=== PATIENT | female | born 1990 | race Hispanic/Latino ===

== ENCOUNTER 2022-07-12 09:22 | Emergency (ER) | payer SELFPAY ==
[~2022-07-12] VITALS: Ht 154.9 cm; Wt 79.4 kg
[2022-07-12] MEDS ORDERED: SODIUM CHLORIDE 0.9% 1000ML 1,000 ML IV STA (09:26)
[2022-07-12] MEDS ORDERED: ONDANSETRON HCL INJ 2MG/ML 2ML 2 MG/ML VIAL IV PRN (09:30)
[2022-07-12 09:42] LABS: BASOPHILS # (AUTO) 0.1 (0.0-0.1); BASOPHILS % 0.8 % (0.0-1.0); EOSINOPHILS # (AUTO) 0.2 (0.0-0.4); EOSINOPHILS % 2.1 % (0.0-6.0); HEMATOCRIT 33.2 % (34.2-44.1); HEMOGLOBIN 9.2 g/dL (12.0-16.0); LYMPHOCYTES # (AUTO) 2.9 (1.0-3.2); LYMPHOCYTES % 33.4 % (18.0-39.1); MEAN CORPUSCULAR HEMOGLOBIN 18.6 pg (28-32); MEAN CORPUSCULAR HGB CONC 27.7 g/dL (31-35); MEAN CORPUSCULAR VOLUME 67.2 fL (81-99); MONOCYTES # (AUTO) 0.7 (0.2-0.8); NEUTROPHILS # (AUTO) 4.8 (2.1-6.9); NEUTROPHILS % 55.5 % (38.7-80.0); PLATELET COUNT 280 x10e3/uL (140-360); RED BLOOD COUNT 4.94 x10e6/uL (3.6-5.1); RED CELL DISTRIBUTION WIDTH 18.1 % (11.7-14.4)
[2022-07-12] MEDS ORDERED: DICYCLOMINE HCL 20 MG/2 ML VIAL IM ONE (09:45)
[2022-07-12] MEDS ORDERED: FENTANYL CITRATE/PF 100MCG/2 ML INJ IV PRN (09:45)
[2022-07-12 10:01] LABS: ALBUMIN 4.1 g/dL (3.5-5.0); ALBUMIN/GLOBULIN RATIO 1.3 (0.8-2.0); ANION GAP 11.8 mmol/L (8-16); CALCIUM 9.1 mg/dL (8.4-10.2); CREATININE, SERUM 0.65 mg/dL (0.57-1.11); POTASSIUM 3.8 mmol/L (3.5-5.1)
[2022-07-12] MEDS ORDERED: FENTANYL CITRATE/PF 100MCG/2 ML INJ ONE (10:03)
[2022-07-12 10:40] LABS: CLARITY,URINE CLEAR (CLEAR); COLOR,URINE YELLOW (YELLOW); KETONES,URINE NEGATIVE (NEGATIVE); LEUKOCYTE ESTERASE ,URINE NEGATIVE (NEGATIVE); NITRITE,URINE NEGATIVE (NEGATIVE); PROTEIN,URINE DIPSTICK NEGATIVE (NEGATIVE); URINE UROBILINOGEN 0.2 mg/dL (0.2 - 1)
[2022-07-12 11:05] LABS: BACTERIA,URINE FEW /HPF; EPITHELIAL CELLS,URINE RARE /LPF; WBC,URINE (MAN) 0-5 /HPF (0-5)
[2022-07-12 11:08] LABS: EOSINOPHILS % (MANUAL) 1 % (0-7); LYMPHOCYTES % (MANUAL) 42 % (19-48); MONOCYTES % (MANUAL) 6 % (3.4-9.0); NEUTROPHILS % (MANUAL) 48 % (40-74)
[2022-07-12 11:09] LABS: ANISOCYTOSIS MODERATE; HYPOCHROMASIA MARKED; MICROCYTOSIS MARKED; OVALOCYTES FEW; PLATELET ESTIMATE ADEQUATE; PLATELET MORPHOLOGY COMMENT NORMAL; POLYCHROMASIA FEW; RBC MORPHOLOGY COMMENT ABNORMAL
[2022-07-12] MEDS ORDERED: ONDANSETRON ODT4 MG PO (11:12)
[2022-07-12] MEDS ORDERED: HYDROCODON-ACE1 EA11 PO ×2 (11:12→11:40)
[2022-07-12] MEDS ORDERED: DICYCLOMINE HCL20 MG PO (11:12)
[2022-07-12 12:24] VITALS: BP 108/62
== END 2022-07-12 11:52 | disposition home or self-care (01) ==
LOC: ER 09:28
DX: R10.11 Right upper quadrant pain (principal); K80.20 Calculus of gallbladder without cholecystitis without obstruction
CPT/HCPCS: 36415; 76705; 80053; 81001; 83690; 84702; 85025; 99284; C9113; J0500; J2405; J3010; J7030

== ENCOUNTER 2025-03-10 11:51 | Emergency (ER) | payer SELFPAY ==
[~2025-03-10] VITALS: Ht 154.9 cm; Wt 56.7 kg
[~2025-03-10 11:51] MED LIST: ACYCLOVIR200 MG PO; AZITHROMYCIN250 MG PO; DICYCLOMINE HCL20 MG PO; HYDROCODON-ACE1 EA11 PO; ONDANSETRON ODT4 MG PO
[2025-03-10 12:05] VITALS: PULSE 109; RESP 18; TEMP 98.3
[2025-03-10] MEDS ORDERED: DOXYCYCLINE HY100 MG PO (14:48)
[2025-03-10] MEDS: TETANUS/DIPHTHERIA TOX ADULT 0.5 ML SYR IM ONE (14:58)
[2025-03-10 15:04] VITALS: BP 116/71; PULSE 91; RESP 17; O2SAT 100
== END 2025-03-10 15:30 | disposition home or self-care (01) ==
LOC: ER 11:58
DX: S01.01XA Laceration without foreign body of scalp, initial encounter (principal); X99.0XXA Assault by sharp glass, initial encounter; Y92.89 Other specified places as the place of occurrence of the external cause
CPT/HCPCS: 70450; 72125; 90714; 99283